=== PATIENT | female | born 1980 | race Caucasian/White ===

== ENCOUNTER 2020-08-28 13:13 | Emergency (ER) | payer BC, OTHER ==
[2020-08-28 13:16] VITALS: BP 126/89; PULSE 94
[2020-08-28] MEDS ORDERED: Sodium Chloride 0.9% 1,000 ML IV SCH (14:00)
[2020-08-28] MEDS ORDERED: Propofol 200 MG/20 ML SDV ONE (14:00)
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
--- NOTE | 2020-08-29 11:54 | CR ---
Knee 1V or 2V Lt CLINICAL HISTORY: Post reduction FINDINGS: The knee is been straightened. There is closer approximation to the inferior and superior patella. Impression: Transverse patellar fracture Fragments approximate in the extended position
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
== END 2020-08-28 17:10 | disposition home or self-care (01) ==
LOC: JP.ED 13:13
DX: S82.032A Displaced transverse fracture of left patella, initial encounter for closed fracture (principal); S63.615A Unspecified sprain of left ring finger, initial encounter; M62.838 Other muscle spasm; J44.9 Chronic obstructive pulmonary disease, unspecified; Z79.899 Other long term (current) drug therapy; Z88.0 Allergy status to penicillin; Z88.8 Allergy status to other drugs, medicaments and biological substances; Z87.891 Personal history of nicotine dependence; V48.5XXA Car driver injured in noncollision transport accident in traffic accident, initial encounter
CPT/HCPCS: 71045; 71045-26; 72125; 73140-26-F3; 73140-F3; 73560-26-LT; 73560-LT; 99285-25; J2704; J7030

== ENCOUNTER 2020-08-29 11:53 | Day surgery (SDC) | payer BC, OTHER ==
[2020-08-29] MEDS ORDERED: Nozin Nasal Sanitizer NASBOTH ONE (12:30)
[2020-08-29] MEDS ORDERED: Lactated Ringers 1,000 ML IV SCH (12:30)
[2020-08-29 12:51] LABS: CORONAVIRUS COVID-19 NAA NEGATIVE (NEGATIVE)
[2020-08-29] MEDS ORDERED: ceFAZolin 2 GM in Sodium Chloride 0.9% 50 ML IV ONE (13:00)
[2020-08-29] MEDS ORDERED: ceFAZolin 2 GM in Premix Bag 1 BAG IV ONE (13:00)
[2020-08-29] MEDS ORDERED: Dexamethasone 4 MG/ML SDV ONE (13:47)
[2020-08-29] MEDS ORDERED: Neostigmine Methylsulfate 1 MG/ML 5 ML Syringe ONE (13:47)
[2020-08-29] MEDS ORDERED: Ondansetron 4 MG/2 ML SDV ONE (13:47)
[2020-08-29] MEDS ORDERED: Rocuronium 50 MG/5 ML Vial ONE (13:47)
[2020-08-29] MEDS ORDERED: Succinylcholine 200 MG/10 ML MDV ONE (13:47)
[2020-08-29] MEDS ORDERED: fentaNYL 250 MCG/5 ML SDV ONE (13:47)
[2020-08-29] MEDS ORDERED: Glycopyrrolate 0.2 MG/ML 5 ML MDV ONE (13:47)
[2020-08-29] MEDS ORDERED: Propofol 200 MG/20 ML SDV ONE (13:47)
[2020-08-29] MEDS ORDERED: fentaNYL 100 MCG/2 ML SDV ONE (14:44)
[2020-08-29] MEDS: Bupivacaine 0.5%/EPINEPHrine 1:200,000 50 ML MDV ONE ×2 (14:59→15:30)
[2020-08-29] MEDS ORDERED: Morphine 2 MG/ML SYRINGE IVPUSH ONE (16:25)
[2020-08-29] MEDS ORDERED: Acetaminophen/oxyCODONE 325-5 MG Tab PO PRN (16:32)
[2020-08-29 17:48] VITALS: BP 112/64; PULSE 82
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
== END 2020-08-29 18:05 | disposition home or self-care (01) ==
LOC: JP.SDS 11:53
PROVIDERS: ATTEND Specialist
DX: S82.042A Displaced comminuted fracture of left patella, initial encounter for closed fracture (principal); J44.9 Chronic obstructive pulmonary disease, unspecified; F17.200 Nicotine dependence, unspecified, uncomplicated; Z91.030 Bee allergy status; Z88.8 Allergy status to other drugs, medicaments and biological substances; Z88.0 Allergy status to penicillin; Z01.812 Encounter for preprocedural laboratory examination; Z20.822 Contact with and (suspected) exposure to COVID-19; V89.2XXA Person injured in unspecified motor-vehicle accident, traffic, initial encounter
CPT/HCPCS: 0241U; 27524; 36415; 80053; 84703; 85027; A9270; J0330; J0690; J1100; J2270; J2405; J2704; J2710; J3010; J3490; J7120

== ENCOUNTER 2020-11-02 08:51 | Inpatient (IN) | payer BC ==
[2020-11-02] MEDS: Bupivacaine 0.5%/EPINEPHrine 1:200,000 50 ML MDV ONE ×2 (08:17→11:16)
[~2020-11-02 08:51] MED LIST: Lactated Ringers 1,000 ML IV SCH; Midazolam 1 MG/ML 2 ML SDV ONE; Nozin Nasal Sanitizer NASBOTH SCH; Propofol 200 MG/20 ML SDV ONE; fentaNYL 100 MCG/2 ML SDV ONE
[2020-11-02] MEDS ORDERED: Lactated Ringers 1,000 ML IV SCH (09:30)
[2020-11-02] MEDS: Nozin Nasal Sanitizer NASBOTH SCH ×2 (09:42→23:20)
[2020-11-02] MEDS ORDERED: Propofol 200 MG/20 ML SDV ONE (10:00)
[2020-11-02 10:12] LABS: CORONAVIRUS COVID-19 NAA POSITIVE (NEGATIVE)
[2020-11-02] MEDS ORDERED: ceFAZolin 2 GM in Sodium Chloride 0.9% 100 ML IV ONE (10:30)
[2020-11-02] MEDS ORDERED: ceFAZolin 2 GM in Premix Bag 1 BAG IV ONE (10:30)
[2020-11-02] MEDS ORDERED: Acetaminophen/oxyCODONE 325-5 MG Tab PO PRN ×2 (13:00→15:34)
[2020-11-02] MEDS ORDERED: Acetaminophen/HYDROcodone 325-5 MG Tab PO PRN ×2 (14:23→15:45)
[2020-11-02] MEDS ORDERED: Ketorolac 30 MG/ML SDV IVPUSH ONE (14:53)
[2020-11-02] MEDS ORDERED: Morphine 2 MG/ML SYRINGE IVPUSH ONE ×2 (15:34→19:15)
[2020-11-02] MEDS ORDERED: Acetaminophen 325 MG Tab PO PRN (15:45)
[2020-11-02] MEDS ORDERED: Ondansetron 4 MG/2 ML SDV IVPUSH PRN (15:45)
[2020-11-02] MEDS ORDERED: Sodium Chloride 0.9% 1,000 ML IV SCH (15:45)
[2020-11-02] MEDS ORDERED: ClonazePAM 1 MG Tab PO PRN (15:51)
[2020-11-02] MEDS ORDERED: Albuterol 8 GM Inhaler INH PRN (15:51)
[2020-11-02] MEDS ORDERED: LEVONORGESTREL IUD IY SCH (16:00)
[2020-11-02] MEDS: Morphine 2 MG/ML SYRINGE IVPUSH PRN (16:46)
[2020-11-02] MEDS: Acetaminophen/oxyCODONE 325-5 MG Tab PO PRN (19:54)
[2020-11-02] MEDS: hydrOXYzine HCL 100 MG/2 ML SDV IM PRN (19:56)
[2020-11-02] MEDS ORDERED: Cyclobenzaprine 10 MG Tab PO ONE (20:25)
[2020-11-02] MEDS ORDERED: Cyclobenzaprine 10 MG Tab ONE (20:26)
[2020-11-02] MEDS ORDERED: Docusate Sodium 100 MG Cap PO SCH (21:00)
[2020-11-02] MEDS ORDERED: traZODone 50 MG Tab PO SCH (21:00)
[2020-11-02] MEDS ORDERED: Non-Formulary Medication 1 Each (Trazodone [Trazodone] 100 MG Tablet) PO SCH ×2 (21:00)
[2020-11-02] MEDS ORDERED: Nozin Nasal Sanitizer NASBOTH SCH (21:00)
[2020-11-02] MEDS: Sulfamethoxazole/Trimethoprim 800-160 MG Tab PO SCH (22:35)
[2020-11-02] MEDS: Docusate Sodium 100 MG Cap PO SCH (22:35)
[2020-11-03] MEDS: Acetaminophen/oxyCODONE 325-5 MG Tab PO PRN ×3 (00:10→09:09)
[2020-11-03] MEDS: hydrOXYzine HCL 100 MG/2 ML SDV IM PRN (01:56)
[2020-11-03] MEDS: Morphine 2 MG/ML SYRINGE IVPUSH PRN ×2 (05:52→09:03)
[2020-11-03] MEDS ORDERED: HYDROmorphone 1 MG/ML Syringe IVPUSH PRN (08:53)
[2020-11-03] MEDS ORDERED: Nicotine 14 MG/24 Hr Patch TRDERM ONE (08:54)
[2020-11-03] MEDS ORDERED: DULoxetine 30 MG Cap PO SCH ×2 (09:00→14:00)
[2020-11-03] MEDS ORDERED: Enoxaparin 30 MG/0.3 ML Syringe SUBCUT SCH ×2 (09:00)
[2020-11-03] MEDS: Docusate Sodium 100 MG Cap PO SCH (09:09)
[2020-11-03] MEDS: Amphetamine/Dextroamphetamine Salts 10 MG Tab PO SCH ×2 (09:09→16:08)
[2020-11-03] MEDS: Sulfamethoxazole/Trimethoprim 800-160 MG Tab PO SCH (09:09)
--- NOTE | 2020-11-03 09:15 | PCM.SURGPN ---
- General Info Date of Service: 11/03/20 Date of Surgery/Procedure: 11/02/20 POD#: 1 Post-Op Diagnosis: left patellar tendon rupture Admission Diagnosis/Problem: Knee joint operation Functional Status: Reports: Tolerating Diet - Review of Systems HEENT: Reports: No Symptoms Pulmonary: Reports: No Symptoms Cardiovascular: Reports: No Symptoms Gastrointestinal: Reports: No Symptoms Genitourinary: Reports: No Symptoms Musculoskeletal: Reports: Leg Pain (Left ), Joint Pain (Left knee ), Joint Swelling (Left knee ) Skin: Reports: No Symptoms Neurological: Reports: No Symptoms Psychiatric: Reports: No Symptoms - Patient Data Vitals - Most Recent: Last Vital Signs Temp 98.6 F 11/03/20 09:05 Pulse 79 11/03/20 09:05 Resp 16 11/03/20 09:05 BP 92/50 L 11/03/20 09:05 Pulse Ox 93 L 11/03/20 09:05 Weight - Most Recent: 173 lb I&O - Last 24 Hours: Intake & Output 11/02/20 11/03/20 11/03/20 22:59 06:59 14:59 Intake Total 700 1548 Output Total 800 150 400 Balance -100 1398 -400 Lab Results Last 24 Hrs: Laboratory Results - last 24 hr 11/02/20 11/02/20 11/02/20 Range/Units 09:12 09:15 09:15 WBC 7.2 (4.5-11.0) K/uL RBC 4.15 (3.30-5.50) M/uL Hgb 14.4 (12.0-15.0) g/dL Hct 43.1 (36.0-48.0) % MCV 104 H (80-98) fL MCH 35 H (27-31) pg MCHC 33 (32-36) % Plt Count 325 (150-400) K/uL Sodium 146 (140-148) mmol/L Potassium 4.0 (3.6-5.2) mmol/L Chloride 109 H (100-108) mmol/L Carbon Dioxide 26 (21-32) mmol/L Anion Gap 15.0 H (5.0-14.0) mmol/L BUN 10 (7-18) mg/dL Creatinine 0.6 (0.6-1.0) mg/dL Est Cr Clr Drug Dosing 102.15 mL/min Estimated GFR (MDRD) > 60 (>60) Glucose 114 H (74-106) mg/dL Calcium 8.2 L (8.5-10.1) mg/dL Total Bilirubin 0.2 D (0.2-1.0) mg/dL AST 20 (15-37) U/L ALT 24 (12-78) U/L Alkaline Phosphatase 102 (46-116) U/L Total Protein 6.3 L (6.4-8.2) g/dL Albumin 3.1 L (3.4-5.0) g/dL Globulin 3.2 (2.3-3.5) g/dL Albumin/Globulin Ratio 1.0 L (1.2-2.2) Urine HCG, Qual Negative Influenza Type A RNA (NEGATIVE) RSV RNA (INAAT) (NEGATIVE) Influenza Type B RNA (NEGATIVE) SARS-CoV-2 RNA (REAGAN) (NEGATIVE) 11/02/20 11/03/20 Range/Units 09:17 05:40 WBC 9.9 (4.5-11.0) K/uL RBC 3.93 (3.30-5.50) M/uL Hgb 13.9 (12.0-15.0) g/dL Hct 41.0 (36.0-48.0) % MCV 104 H (80-98) fL MCH 35 H (27-31) pg MCHC 34 (32-36) % Plt Count 260 (150-400) K/uL Sodium (140-148) mmol/L Potassium (3.6-5.2) mmol/L Chloride (100-108) mmol/L Carbon Dioxide (21-32) mmol/L Anion Gap (5.0-14.0) mmol/L BUN (7-18) mg/dL Creatinine (0.6-1.0) mg/dL Est Cr Clr Drug Dosing mL/min Estimated GFR (MDRD) (>60) Glucose (74-106) mg/dL Calcium (8.5-10.1) mg/dL Total Bilirubin (0.2-1.0) mg/dL AST (15-37) U/L ALT (12-78) U/L Alkaline Phosphatase (46-116) U/L Total Protein (6.4-8.2) g/dL Albumin (3.4-5.0) g/dL Globulin (2.3-3.5) g/dL Albumin/Globulin Ratio (1.2-2.2) Urine HCG, Qual Influenza Type A RNA Negative (NEGATIVE) RSV RNA (INAAT) Negative (NEGATIVE) Influenza Type B RNA Negative (NEGATIVE) SARS-CoV-2 RNA (REAGAN) Positive H (NEGATIVE) Med Orders - Current: Current Medications Acetaminophen (Acetaminophen 325 Mg Tab) 650 mg PO Q4H PRN PRN Reason: Pain/Fever Hydrocodone Bitart/Acetaminophen (Acetaminophen/Hydrocodone 325-5 Mg Tab) 1 tab PO Q4H PRN PRN Reason: Pain (mild 1-3) Albuterol (Albuterol 8 Gm Inhaler) 0 gm INH ASDIRECTED PRN PRN Reason: Shortness of Breath Amphetamine/Dextroamphetamine (Amphetamine/Dextroamphetamine Salts 10 Mg Tab) 10 mg PO BID@0800,1500 [facility] Last Admin: 11/03/20 09:09 Dose: 10 mg Documented by: Bandage/Support Products (Nozin Nasal Retail Store Manager) 1 applic NASBOTH BID [facility] Last Admin: 11/02/20 23:20 Dose: Not Given Documented by: Clonazepam (Clonazepam 1 Mg Tab) 1 mg PO BID PRN PRN Reason: Anxiety Last Admin: 11/02/20 16:14 Dose: 1 mg Documented by: Docusate Sodium (Docusate Sodium 100 Mg Cap) 100 mg PO BID [facility] Last Admin: 11/03/20 09:09 Dose: 100 mg Documented by: Duloxetine HCl (Duloxetine 30 Mg Cap) 30 mg PO DAILY [facility] Enoxaparin Sodium (Enoxaparin 30 Mg/0.3 Ml Syringe) 30 mg SUBCUT DAILY [facility] Last Admin: 11/03/20 09:09 Dose: 30 mg Documented by: Hydromorphone HCl (Hydromorphone 1 Mg/Ml Syringe) 1 mg IVPUSH Q4H PRN PRN Reason: Breakthrough Pain Hydroxyzine HCl (Hydroxyzine Hcl 100 Mg/2 Ml Sdv) 100 mg IM Q6H PRN PRN Reason: Pain Last Admin: 11/03/20 01:56 Dose: 100 mg Documented by: Sodium Chloride (Normal Saline) 1,000 mls @ 125 mls/hr IV ASDIRECTED [facility] Last Admin: 11/02/20 16:14 Dose: 125 mls/hr Documented by: Morphine Sulfate (Morphine 2 Mg/Ml Syringe) 1 mg IVPUSH Q1H PRN PRN Reason: Breakthrough Pain Last Admin: 11/03/20 09:03 Dose: 1 mg Documented by: Ondansetron HCl (Ondansetron 4 Mg/2 Ml Sdv) 4 mg IVPUSH Q4H PRN PRN Reason: Nausea/Vomiting Oxycodone/Acetaminophen (Acetaminophen/Oxycodone 325-5 Mg Tab) 1 - 2 tab PO Q4H PRN PRN Reason: Pain Last Admin: 11/03/20 09:09 Dose: 2 tab Documented by: Trazodone HCl (Trazodone 50 Mg Tab) 50 mg PO BEDTIME [facility] Last Admin: 11/02/20 22:36 Dose: 50 mg Documented by: Trimethoprim/Sulfamethoxazole (Sulfamethoxazole/Trimethoprim 800-160 Mg Tab) 1 tab PO BID [facility] Last Admin: 11/03/20 09:09 Dose: 1 tab Documented by: Discontinued Medications Hydrocodone Bitart/Acetaminophen (Acetaminophen/Hydrocodone 325-5 Mg Tab) 2 tab PO Q6H PRN PRN Reason: Pain Stop: 11/02/20 19:00 Last Admin: 11/02/20 14:32 Dose: 2 tab Documented by: Bupivacaine HCl/Epinephrine Bitart (Bupivacaine 0.5%/Epinephrine 1:200,000 50 Ml Mdv) Confirm Administered Dose 50 ml .ROUTE .STK-MED ONE Stop: 11/02/20 07:23 Last Admin: 11/02/20 11:16 Dose: 30 ml Documented by: Cyclobenzaprine HCl (Cyclobenzaprine 10 Mg Tab) 10 mg PO ONETIME ONE Stop: 11/02/20 20:26 Last Admin: 11/02/20 20:30 Dose: 10 mg Documented by: Cyclobenzaprine HCl (Cyclobenzaprine 10 Mg Tab) Confirm Administered Dose 10 mg .ROUTE .STK-MED ONE Stop: 11/02/20 20:27 Last Admin: 11/02/20 21:38 Dose: Not Given Documented by: Docusate Sodium (Docusate Sodium 100 Mg Cap) 100 mg PO BID [facility] Duloxetine HCl (Duloxetine 30 Mg Cap) 30 mg PO DAILY [facility] Enoxaparin Sodium (Enoxaparin 30 Mg/0.3 Ml Syringe) 30 mg SUBCUT DAILY [facility] Fentanyl (Fentanyl 100 Mcg/2 Ml Sdv) Confirm Administered Dose 100 mcg .ROUTE .STK-MED ONE Stop: 11/02/20 08:31 Lactated Ringer's (Ringers, Lactated) 1,000 mls @ 75 mls/hr IV ASDIRECTED [facility] Lactated Ringer's (Ringers, Lactated) 1,000 mls @ 75 mls/hr IV ASDIRECTED [facility] Last Admin: 11/02/20 09:51 Dose: 75 mls/hr Documented by: Cefazolin Sodium/Dextrose 2 gm (/ Premix) 50 mls @ 100 mls/hr IV ONETIME ONE Stop: 11/02/20 10:59 Last Admin: 11/02/20 10:38 Dose: 100 mls/hr Documented by: Ketorolac Tromethamine (Ketorolac 30 Mg/Ml Sdv) 30 mg IVPUSH ONETIME ONE Stop: 11/02/20 14:54 Last Admin: 11/02/20 15:12 Dose: 30 mg Documented by: Midazolam HCl (Midazolam 1 Mg/Ml 2 Ml Sdv) Confirm Administered Dose 2 mg .ROUTE .STK-MED ONE Stop: 11/02/20 08:31 Morphine Sulfate (Morphine 2 Mg/Ml Syringe) 2 mg IVPUSH ONETIME ONE Stop: 11/02/20 15:35 Last Admin: 11/02/20 15:42 Dose: 2 mg Documented by: Morphine Sulfate (Morphine 2 Mg/Ml Syringe) 2 mg IVPUSH ONETIME ONE Stop: 11/02/20 19:16 Last Admin: 11/02/20 19:55 Dose: 2 mg Documented by: Nicotine (Nicotine 14 Mg/24 Hr Patch) 14 mg TRDERM ONETIME ONE Stop: 11/03/20 08:55 Non-Formulary Medication (Trazodone [Trazodone]) 50 mg PO BEDTIME [facility] Oxycodone/Acetaminophen (Acetaminophen/Oxycodone 325-5 Mg Tab) 1 tab PO ONETIME PRN PRN Reason: Pain Last Admin: 11/02/20 15:46 Dose: 1 tab Documented by: Propofol (Propofol 200 Mg/20 Ml Sdv) Confirm Administered Dose 200 mg .ROUTE .STK-MED ONE Stop: 11/02/20 08:31 Propofol (Propofol 200 Mg/20 Ml Sdv) 200 mg .ROUTE .STK-MED ONE Stop: 11/02/20 10:01 - Exam Wound/Incisions: Dressing Dry and Intact, No Drainage General: Alert, Oriented, Moderate Distress Extremities: Joint Swelling (left knee ), Leg Pain (left ), Limited Range of Motion Skin: Dry, Intact Neurological: No New Focal Deficit Psy/Mental Status: Alert, Anxious Sepsis Event Note - Evaluation Sepsis Screening Result: No Definite Risk - Focused Exam Vital Signs: Vital Signs Temp Pulse Resp BP Pulse Ox 11/03/20 09:05 98.6 F 79 16 92/50 L 93 L 11/03/20 07:23 91 L 11/03/20 02:10 96.8 F L 72 16 140/85 94 L 11/03/20 00:46 91 L 11/02/20 22:33 95.6 F L 68 18 123/85 94 L 11/02/20 21:58 95 - Problem List & Annotations (1) S/P tendon repair SNOMED Code(s): 136828454, 730280273 Code(s): Z98.890 - OTHER SPECIFIED POSTPROCEDURAL STATES Status: Acute Current Visit: Yes Annotation/Comment:: Patella Tendon (2) COVID-19 SNOMED Code(s): 938551991 Code(s): U07.1 - COVID-19 Status: Acute Current Visit: Yes - Problem List Review Problem List Initiated/Reviewed/Updated: Yes - My Orders Last 24 Hours: Active Orders 24 hr Category Date Time Status Patient Status [ADT] Routine ADT 11/02/20 15:46 Active Ambulate [RC] QID Care 11/02/20 15:46 Active Antiembolic Devices [RC] .Routine Care 11/02/20 15:46 Active Head of Bed Elevation [RC] ASDIRECTED Care 11/02/20 15:46 Active Intake and Output [RC] QSHIFT Care 11/02/20 15:46 Active May Shower [RC] ASDIRECTED Care 11/02/20 15:46 Active Neurovascular Check [RC] Q4H Care 11/02/20 15:46 Active Notify Provider Vital Signs [RC] ASDIRECTED Care 11/02/20 15:45 Active Overnight Pulse Oximetry [RC] Click to Edit Care 11/02/20 21:02 Active Oxygen Therapy [RC] PRN Care 11/02/20 15:46 Active RT Incentive Spirometry [RC] Q1HWA Care 11/02/20 15:46 Active RT Post Treatment Assessment [RC] Click to Edit Care 11/02/20 15:52 Active Up to Chair [RC] QID Care 11/02/20 15:46 Active VTE/DVT Education [RC] Click to Edit Care 11/02/20 15:46 Active Vital Signs [RC] PER UNIT ROUTINE Care 11/02/20 15:46 Active Wound Care [RC] Q12H Care 11/02/20 15:46 Active Consult to Case Management/Clinical Informatics Physician [CONS] Cons 11/02/20 15:46 Active Routine PT Evaluation and Treatment [CONS] Routine Cons 11/02/20 15:46 Active Regular Diet [DIET] Diet 11/02/20 Lunch Active Acetaminophen [TylenoL] Med 11/02/20 15:45 Active 650 mg PO Q4H PRN Acetaminophen/HYDROcodone [[place]ia 325-5 MG] Med 11/02/20 15:45 Active 1 tab PO Q4H PRN Acetaminophen/oxyCODONE [Percocet 325-5 MG] Med 11/02/20 15:45 Active 1 - 2 tab PO Q4H PRN Albuterol [Ventolin HFA] Med 11/02/20 15:51 Active 0 gm INH ASDIRECTED PRN Amphetamine/Dextroamphetamine [Adderall] Med 11/03/20 08:00 Active 10 mg PO BID@0800,1500 ClonazePAM [KlonoPIN] Med 11/02/20 15:51 Active 1 mg PO BID PRN DULoxetine [Cymbalta] Med 11/03/20 09:00 Pending 30 mg PO DAILY Docusate Sodium [Colace] Med 11/02/20 21:00 Active 100 mg PO BID Enoxaparin [Lovenox] Med 11/03/20 09:00 Active 30 mg SUBCUT DAILY HYDROmorphone [Dilaudid] Med 11/03/20 08:53 Active 1 mg IVPUSH Q4H PRN Morphine Med 11/02/20 15:45 Active 1 mg IVPUSH Q1H PRN Nozin [ Nasal Retail Store Manager] Med 11/02/20 09:30 Active 1 applic NASBOTH BID Ondansetron [Zofran] Med 11/02/20 15:45 Active 4 mg IVPUSH Q4H PRN Sodium Chloride 0.9% [Normal Saline] 1,000 ml Med 11/02/20 15:45 Active IV ASDIRECTED Sulfamethoxazole/Trimethoprim [Septra DS] Med 11/02/20 21:00 Active 1 tab PO BID hydrOXYzine HCL [Vistaril] Med 11/02/20 19:14 Active 100 mg IM Q6H PRN traZODone Med 11/02/20 21:00 Active 50 mg PO BEDTIME Antiembolic Hose [OM.PC] Routine Oth 11/02/20 15:46 Ordered DVT/VTE Prophylaxis Reflex [OM.PC] Routine Oth 11/02/20 15:46 Ordered Ice Therapy [OM.PC] Per Unit Routine Oth 11/02/20 15:46 Ordered Medication Continuation Instructions [OM.PC] Per Unit Oth 11/02/20 15:46 Ordered Routine Oral Care [OM.PC] Routine Oth 11/02/20 15:46 Ordered Pulse Oximetry Continuous Monitoring [OM.PC] Routine Oth 11/02/20 21:02 Ordered Sequential Compression Device [OM.PC] Routine Oth 11/02/20 15:46 Ordered Weight bearing status [OM.PC] Routine Oth 11/02/20 15:53 Ordered Resuscitation Status Routine Resus Stat 11/02/20 15:45 Ordered Medication Orders Acetaminophen (Acetaminophen 325 Mg Tab) 650 mg PO Q4H PRN PRN Reason: Pain/Fever Hydrocodone Bitart/Acetaminophen (Acetaminophen/Hydrocodone 325-5 Mg Tab) 1 tab PO Q4H PRN PRN Reason: Pain (mild 1-3) Albuterol (Albuterol 8 Gm Inhaler) 0 gm INH ASDIRECTED PRN PRN Reason: Shortness of Breath Amphetamine/Dextroamphetamine (Amphetamine/Dextroamphetamine Salts 10 Mg Tab) 10 mg PO BID@0800,1500 [facility] Last Admin: 11/03/20 09:09 Dose: 10 mg Documented by: CLAUS Bandage/Support Products (Nozin Nasal Retail Store Manager) 1 applic NASBOTH BID [facility] Last Admin: 11/02/20 23:20 Dose: Not Given Documented by: Admin: 11/02/20 09:42 Dose: 1 applic Documented by: URIEL Clonazepam (Clonazepam 1 Mg Tab) 1 mg PO BID PRN PRN Reason: Anxiety Last Admin: 11/02/20 16:14 Dose: 1 mg Documented by: PARTH Docusate Sodium (Docusate Sodium 100 Mg Cap) 100 mg PO BID [facility] Last Admin: 11/03/20 09:09 Dose: 100 mg Documented by: Admin: 11/02/20 22:35 Dose: 100 mg Documented by: DEMAR Duloxetine HCl (Duloxetine 30 Mg Cap) 30 mg PO DAILY [facility] Enoxaparin Sodium (Enoxaparin 30 Mg/0.3 Ml Syringe) 30 mg SUBCUT DAILY [facility] Last Admin: 11/03/20 09:09 Dose: 30 mg Documented by: CLAUS Hydromorphone HCl (Hydromorphone 1 Mg/Ml Syringe) 1 mg IVPUSH Q4H PRN PRN Reason: Breakthrough Pain Hydroxyzine HCl (Hydroxyzine Hcl 100 Mg/2 Ml Sdv) 100 mg IM Q6H PRN PRN Reason: Pain Last Admin: 11/03/20 01:56 Dose: 100 mg Documented by: Admin: 11/02/20 19:56 Dose: 100 mg Documented by: DEMAR Sodium Chloride (Normal Saline) 1,000 mls @ 125 mls/hr IV ASDIRECTED [facility] Last Admin: 11/02/20 16:14 Dose: 125 mls/hr Documented by: PARTH Morphine Sulfate (Morphine 2 Mg/Ml Syringe) 1 mg IVPUSH Q1H PRN PRN Reason: Breakthrough Pain Last Admin: 11/03/20 09:03 Dose: 1 mg Documented by: Admin: 11/03/20 05:52 Dose: 1 mg Documented by: Admin: 11/02/20 16:46 Dose: 1 mg Documented by: JOSEMANUEL Ondansetron HCl (Ondansetron 4 Mg/2 Ml Sdv) 4 mg IVPUSH Q4H PRN PRN Reason: Nausea/Vomiting Oxycodone/Acetaminophen (Acetaminophen/Oxycodone 325-5 Mg Tab) 1 - 2 tab PO Q4H PRN PRN Reason: Pain Last Admin: 11/03/20 09:09 Dose: 2 tab Documented by: Admin: 11/03/20 05:04 Dose: 2 tab Documented by: Admin: 11/03/20 00:10 Dose: 2 tab Documented by: Admin: 11/02/20 19:54 Dose: 2 tab Documented by: DEMAR Trazodone HCl (Trazodone 50 Mg Tab) 50 mg PO BEDTIME [facility] Last Admin: 11/02/20 22:36 Dose: 50 mg Documented by: DEMAR Trimethoprim/Sulfamethoxazole (Sulfamethoxazole/Trimethoprim 800-160 Mg Tab) 1 tab PO BID [facility] Last Admin: 11/03/20 09:09 Dose: 1 tab Documented by: Admin: 11/02/20 22:35 Dose: 1 tab Documented by: DEMAR - Assessment Assessment (Free Text/Narrative):: Patient is a 40 y/o female, s/p left patellar tendon rupture repair, POD #1. Was set to be a same day surgery, but was admitted for inadequate pain control. Patient also tested positive for covid the morning of surgery. Patient is asymptomatic and was unaware she had covid. Denied any recent sick contacts. Patient had difficulty with pain control the afternoon following surgery and all day. Only slept in 30-40 minute increments last night due to pain. Patient was given Percocet, Morphine, Hydroxyzine, and Flexeril overnight, but continues to endorse pain. Order added for Dilaudid this morning. Additionally, ordered patient a nicotine patch. Exam: L LE neurovascular intact. Calf is soft and supple. Able to passively move ankle without increased pain. Left knee dressing dry and intact. Unable to assess temperature with recent cold packs. Plan: * Adjustments made to pain regimen this morning; will continue with current orders at this time * Patient to continue physical therapy while inpatient; may WBAT with brace locked in full extension.
[2020-11-03] MEDS: Nozin Nasal Sanitizer NASBOTH SCH (12:06)
[2020-11-03] MEDS ORDERED: HYDROmorphone 2 MG Tab PO PRN (14:00)
[2020-11-03 16:11] VITALS: BP 127/88; PULSE 77
--- NOTE | 2020-11-03 17:01 | PCM.DCSUM1 ---
Discharge Summary - Hospital Course Free Text/Narrative:: 40 year old white female with history of fracture of the inferior pole of the patella treated by repair of infrapatellar tendon. Repair failed and she was returned to the OR for revision of repair. She had poor pain control and was admitted for IV medication. Diagnosis: Stroke: No Modified White Scale: No Symptoms at All Modified Zeb Scale Score: 0 - Discharge Data Discharge Date: 11/03/20 Discharge Disposition: Home, Self-Care 01 Condition: Good - Referral to Home Health Date of Face to Face Encounter: 11/03/20 Primary Care Physician: Catie Sher PA-C - Discharge Diagnosis/Problem(s) (1) S/P tendon repair SNOMED Code(s): 960420031, [id number] ICD Code: Z98.890 - OTHER SPECIFIED POSTPROCEDURAL STATES Status: Acute Current Visit: Yes Problem Details: Patella Tendon (2) Fracture of patella SNOMED Code(s): 94200912 ICD Code: S82.009A - UNSP FRACTURE OF UNSP PATELLA, INIT FOR CLOS FX Status: Acute Current Visit: No Qualifiers: Encounter type: subsequent encounter Fracture type: closed Fracture morphology: comminuted Laterality: left - Patient Summary/Data Operative Procedure(s) Performed: Repair of infrapatellar tendon Consults: Consultations 11/02/20 15:46 Consult to Case Management/Heater Worker [CONS] Routine Comment: Physician Instructions: Service(s) to be Consulted: Case Management Reason for Consult: Plan for Discharge PT Evaluation and Treatment [CONS] Routine Please Evaluate and Treat. PT Reason for Consult: Post op Ortho Surgery Special Instructions: s/p L patella tendon repair WBAT on LLE with brace locked in full extension This query below is only for informational purposes and is not editable. Hospital Course: Patient admitted from surgery for pain control. Initially had minimal relief with oral of IV medication. Was finally able to get some relief with a combination of IV and Oral meds. POD #1 was still having fairly severe pain and tried Dilaudid with good effect. Was transitioned to po Dilaudid and she was comfortable enough to be discharged. Follow up in clinic in two weeks. She may remove dressing and shower on POD #2. She should have the knee brace on any time she is up and should no weight bear without the brace. - Patient Instructions Diet: Usual Diet as Tolerated Activity: Apply Ice, Elevate Extremity Activity, Other: May weight bear as tolaerated with brace on, no knee flexion Showering/Bathing: Shower in AM Wound/Incision Care: Keep Operative Site/Wound Site Clean and Dry Notify Provider of: Fever, Increased Pain, Swelling and Redness, Drainage, Nausea and/or Vomiting - Discharge Plan *PRESCRIPTION DRUG MONITORING PROGRAM REVIEWED*: No *COPY OF PRESCRIPTION DRUG MONITORING REPORT IN PATIENT CARLA: No Prescriptions/Med Rec: Sulfamethoxazole/Trimethoprim [Bactrim Ds Tablet] 1 each PO BID #14 tablet HYDROmorphone [Dilaudid] 2 mg PO Q4H PRN #30 tab PRN Reason: Pain (Severe 7-10) Acetaminophen/HYDROcodone [[place] 325-5 MG] 1 - 2 tab PO Q6H PRN #30 tab PRN Reason: Pain Home Medications: Home Meds Albuterol Sulfate [Albuterol Sulfate Hfa] 1 - 2 puff IH ASDIRECTED PRN 05/04/20 [History] Celecoxib [CeleBREX] 100 mg PO BID PRN 05/04/20 [History] traZODone 50 mg PO BEDTIME 05/04/20 [History] DULoxetine [Cymbalta] 30 mg PO DAILY 08/28/20 [History] clonazePAM [Clonazepam] 1 mg PO BID PRN 08/28/20 [History] levonorgestreL [Kyleena] 1 each IY ASDIRECTED 08/29/20 [History] oxyCODONE 5 mg PO Q6H PRN 08/29/20 [History] cephALEXin [Keflex] 500 mg PO TID 7 Days #21 cap 10/19/20 [Rx] Dextroamphetamine/Amphetamine [Adderall 10 mg Tablet] 10 mg PO BID 10/28/20 [History] Acetaminophen/HYDROcodone [[place] 325-5 MG] 1 - 2 tab PO Q6H PRN #30 tab 11/02/20 [Rx] Sulfamethoxazole/Trimethoprim [Bactrim Ds Tablet] 1 each PO BID #14 tablet 11/02/20 [Rx] HYDROmorphone [Dilaudid] 2 mg PO Q4H PRN #30 tab 11/03/20 [Rx] - Discharge Summary/Plan Comment DC Time >30 min.: No - General Info Date of Service: 11/03/20 Functional Status: Reports: Pain Controlled, Tolerating Diet, Ambulating, Urinating - Review of Systems General: Reports: No Symptoms HEENT: Reports: No Symptoms Pulmonary: Reports: No Symptoms Cardiovascular: Reports: No Symptoms Gastrointestinal: Reports: No Symptoms Genitourinary: Reports: No Symptoms Musculoskeletal: Reports: Leg Pain Skin: Reports: No Symptoms Neurological: Reports: No Symptoms Psychiatric: Reports: No Symptoms - Patient Data Vitals - Most Recent: Last Vital Signs Temp 35.5 C L 11/03/20 16:10 Pulse 77 11/03/20 16:10 Resp 16 11/03/20 16:10 BP 127/88 11/03/20 16:10 Pulse Ox 97 11/03/20 16:10 Weight - Most Recent: 78.471 kg I&O - Last 24 hours: Intake & Output 11/03/20 11/03/20 11/03/20 06:59 14:59 22:59 Intake Total 1548 500 800 Output Total 150 800 900 Balance 1398 -300 -100 Lab Results - Last 24 hrs: Laboratory Results - last 24 hr 11/03/20 Range/Units 05:40 WBC 9.9 (4.5-11.0) K/uL RBC 3.93 (3.30-5.50) M/uL Hgb 13.9 (12.0-15.0) g/dL Hct 41.0 (36.0-48.0) % MCV 104 H (80-98) fL MCH 35 H (27-31) pg MCHC 34 (32-36) % Plt Count 260 (150-400) K/uL Med Orders - Current: Current Medications Acetaminophen (Acetaminophen 325 Mg Tab) 650 mg PO Q4H PRN PRN Reason: Pain/Fever Hydrocodone Bitart/Acetaminophen (Acetaminophen/Hydrocodone 325-5 Mg Tab) 1 tab PO Q4H PRN PRN Reason: Pain (mild 1-3) Albuterol (Albuterol 8 Gm Inhaler) 0 gm INH ASDIRECTED PRN PRN Reason: Shortness of Breath Amphetamine/Dextroamphetamine (Amphetamine/Dextroamphetamine Salts 10 Mg Tab) 10 mg PO BID@0800,1500 [facility] Last Admin: 11/03/20 16:08 Dose: 10 mg Documented by: Bandage/Support Products (Nozin Nasal [employer] Engineer) 1 applic NASBOTH BID [facility] Last Admin: 11/03/20 12:06 Dose: Not Given Documented by: Clonazepam (Clonazepam 1 Mg Tab) 1 mg PO BID PRN PRN Reason: Anxiety Last Admin: 11/02/20 16:14 Dose: 1 mg Documented by: Docusate Sodium (Docusate Sodium 100 Mg Cap) 100 mg PO BID [facility] Last Admin: 11/03/20 09:09 Dose: 100 mg Documented by: Duloxetine HCl (Duloxetine 30 Mg Cap) 60 mg PO DAILY [facility] Last Admin: 11/03/20 14:11 Dose: Not Given Documented by: Enoxaparin Sodium (Enoxaparin 30 Mg/0.3 Ml Syringe) 30 mg SUBCUT DAILY [facility] Last Admin: 11/03/20 09:09 Dose: 30 mg Documented by: Hydromorphone HCl (Hydromorphone 2 Mg Tab) 2 mg PO Q4H PRN PRN Reason: Breakthrough Pain Last Admin: 11/03/20 16:08 Dose: 2 mg Documented by: Hydroxyzine HCl (Hydroxyzine Hcl 100 Mg/2 Ml Sdv) 100 mg IM Q6H PRN PRN Reason: Pain Last Admin: 11/03/20 01:56 Dose: 100 mg Documented by: Sodium Chloride (Normal Saline) 1,000 mls @ 125 mls/hr IV ASDIRECTED [facility] Last Admin: 11/02/20 16:14 Dose: 125 mls/hr Documented by: Morphine Sulfate (Morphine 2 Mg/Ml Syringe) 1 mg IVPUSH Q1H PRN PRN Reason: Breakthrough Pain Last Admin: 11/03/20 09:03 Dose: 1 mg Documented by: Ondansetron HCl (Ondansetron 4 Mg/2 Ml Sdv) 4 mg IVPUSH Q4H PRN PRN Reason: Nausea/Vomiting Oxycodone/Acetaminophen (Acetaminophen/Oxycodone 325-5 Mg Tab) 1 - 2 tab PO Q4H PRN PRN Reason: Pain Last Admin: 11/03/20 09:09 Dose: 2 tab Documented by: Trazodone HCl (Trazodone 50 Mg Tab) 50 mg PO BEDTIME [facility] Last Admin: 11/02/20 22:36 Dose: 50 mg Documented by: Trimethoprim/Sulfamethoxazole (Sulfamethoxazole/Trimethoprim 800-160 Mg Tab) 1 tab PO BID [facility] Last Admin: 11/03/20 09:09 Dose: 1 tab Documented by: Discontinued Medications Hydrocodone Bitart/Acetaminophen (Acetaminophen/Hydrocodone 325-5 Mg Tab) 2 tab PO Q6H PRN PRN Reason: Pain Stop: 11/02/20 19:00 Last Admin: 11/02/20 14:32 Dose: 2 tab Documented by: Bupivacaine HCl/Epinephrine Bitart (Bupivacaine 0.5%/Epinephrine 1:200,000 50 Ml Mdv) Confirm Administered Dose 50 ml .ROUTE .STK-MED ONE Stop: 11/02/20 07:23 Last Admin: 11/02/20 11:16 Dose: 30 ml Documented by: Cyclobenzaprine HCl (Cyclobenzaprine 10 Mg Tab) 10 mg PO ONETIME ONE Stop: 11/02/20 20:26 Last Admin: 11/02/20 20:30 Dose: 10 mg Documented by: Cyclobenzaprine HCl (Cyclobenzaprine 10 Mg Tab) Confirm Administered Dose 10 mg .ROUTE .STK-MED ONE Stop: 11/02/20 20:27 Last Admin: 11/02/20 21:38 Dose: Not Given Documented by: Docusate Sodium (Docusate Sodium 100 Mg Cap) 100 mg PO BID [facility] Duloxetine HCl (Duloxetine 30 Mg Cap) 30 mg PO DAILY [facility] Enoxaparin Sodium (Enoxaparin 30 Mg/0.3 Ml Syringe) 30 mg SUBCUT DAILY [facility] Fentanyl (Fentanyl 100 Mcg/2 Ml Sdv) Confirm Administered Dose 100 mcg .ROUTE .STK-MED ONE Stop: 11/02/20 08:31 Hydromorphone HCl (Hydromorphone 1 Mg/Ml Syringe) 1 mg IVPUSH Q4H PRN PRN Reason: Breakthrough Pain Last Admin: 11/03/20 12:04 Dose: 1 mg Documented by: Lactated Ringer's (Ringers, Lactated) 1,000 mls @ 75 mls/hr IV ASDIRECTED [facility] Lactated Ringer's (Ringers, Lactated) 1,000 mls @ 75 mls/hr IV ASDIRECTED [facility] Last Admin: 11/02/20 09:51 Dose: 75 mls/hr Documented by: Cefazolin Sodium/Dextrose 2 gm (/ Premix) 50 mls @ 100 mls/hr IV ONETIME ONE Stop: 11/02/20 10:59 Last Admin: 11/02/20 10:38 Dose: 100 mls/hr Documented by: Ketorolac Tromethamine (Ketorolac 30 Mg/Ml Sdv) 30 mg IVPUSH ONETIME ONE Stop: 11/02/20 14:54 Last Admin: 11/02/20 15:12 Dose: 30 mg Documented by: Midazolam HCl (Midazolam 1 Mg/Ml 2 Ml Sdv) Confirm Administered Dose 2 mg .ROUTE .STK-MED ONE Stop: 11/02/20 08:31 Morphine Sulfate (Morphine 2 Mg/Ml Syringe) 2 mg IVPUSH ONETIME ONE Stop: 11/02/20 15:35 Last Admin: 11/02/20 15:42 Dose: 2 mg Documented by: Morphine Sulfate (Morphine 2 Mg/Ml Syringe) 2 mg IVPUSH ONETIME ONE Stop: 11/02/20 19:16 Last Admin: 11/02/20 19:55 Dose: 2 mg Documented by: Nicotine (Nicotine 14 Mg/24 Hr Patch) 14 mg TRDERM ONETIME ONE Stop: 11/03/20 08:55 Last Admin: 11/03/20 10:30 Dose: Not Given Documented by: Non-Formulary Medication (Trazodone [Trazodone]) 50 mg PO BEDTIME [facility] Oxycodone/Acetaminophen (Acetaminophen/Oxycodone 325-5 Mg Tab) 1 tab PO ONETIME PRN PRN Reason: Pain Last Admin: 11/02/20 15:46 Dose: 1 tab Documented by: Propofol (Propofol 200 Mg/20 Ml Sdv) Confirm Administered Dose 200 mg .ROUTE .STK-MED ONE Stop: 11/02/20 08:31 Propofol (Propofol 200 Mg/20 Ml Sdv) 200 mg .ROUTE .STK-MED ONE Stop: 11/02/20 10:01 - Exam General: Reports: Alert, Oriented HEENT: Reports: Pupils Equal, Pupils Reactive, EOMI Neck: Reports: Supple Cardiovascular: Reports: Regular Rate, Regular Rhythm Extremities: Joint Swelling, Limited Range of Motion Skin: Reports: Warm, Dry Wound/Incisions: Reports: No Drainage Neurological: Reports: No New Focal Deficit Psy/Mental Status: Reports: Alert, Normal Affect, Normal Mood
--- NOTE | 2020-11-14 19:55 | OR ---
DATE OF PROCEDURE: 11/02/2020 SURGEON: Lucas Lyons MD PREOPERATIVE DIAGNOSES: Failed fixation of left infrapatellar tendon secondary to inferior pole fracture. POSTOPERATIVE DIAGNOSIS: Failed repair of infrapatellar tendon, left knee. PROCEDURE: Revision repair of infrapatellar tendon, left knee. PLUMBING MECHANIC: KASANDRA Esparza ANESTHESIA: General. INDICATIONS: Merari is a 40-year-old female who sustained an injury resulting in a comminuted fracture of the inferior pole of the patella. This was treated by suture fixation of the infrapatellar tendon. This now demonstrates failure of this repair with a persistent gap and inability to actively extend the knee. Therefore, return to the operating room for revision of the fixation. Services of physician players assistant were used as kindergarten assistant for exposure, retraction, and manipulation of the fracture fragments. DESCRIPTION OF PROCEDURE: After adequate anesthesia was obtained, the patient was placed supine with a tourniquet about the left upper thigh. The left leg was prepped and draped in a sterile fashion. The leg was exsanguinated and tourniquet inflated to 300 mmHg pressure. The previous incision was utilized, carried down through the subcutaneous tissues, and the failure of fixation was immediately identified with rupture of multiple sutures. The sutures were removed from the patella. The knee was irrigated. The end of the patella was debrided. Hematoma was removed and any overlying soft tissue was cleared with curette and a rongeur getting back to fresh bone. Any small bony fragments on the superior end of the infrapatellar tendon were debrided in a similar fashion. Two FiberWire sutures were placed in the infrapatellar tendon in a [place] fashion. Three drill holes were then placed from inferior to superior in the patella. The central drill hole was used to place one of each of the pairs of sutures from the tendon. Each remaining pair was then passed through the medial and lateral drill holes respectively. The knee was placed in full extension. Towel clamps utilized to approximate the small bony fragment and edge of the tendon to the inferior pole of the patella with some compression. The sutures were then tied over top of the patella and one strand of each of the suture pairs were then tied to each other and the sutures were cut. Additional fixation was obtained with another FiberWire suture placed in a running fashion from the capsule medially across the patella incorporating the periosteum over the patella and the tendon to the lateral capsule. This was oversewn once again placing a suture in a figure- of-eight tension band fashion through the infrapatellar tendon up across the repair site and into the insertion of the quadriceps tendon slightly medial of midline. This was repeated slightly lateral of midline. Once this was complete, the knee was flexed to approximately 45 degrees with no separation at the repair site. The wound was irrigated and skin was closed with 2-0 Vicryl and a running 3-0 Monocryl. Steri-Strips were applied. Light compressive dressing was placed. A hinged knee brace was applied and locked in full extension. Lucas Lyons MD /[id number] MTDD
== END 2020-11-03 17:25 | disposition home or self-care (01) | DRG 317 ==
LOC: JP.SDSSCHI 08:51 → JP.SDS 08:51 → EDSTATUS 10:30 → JP.MS 15:46
PROVIDERS: ADMIT Specialist; ATTEND Specialist
PROC: 0LQR0ZZ Repair Left Knee Tendon, Open Approach (ICD-10-PCS; principal; 2020-11-02)
DX: T84.490A Other mechanical complication of muscle and tendon graft, initial encounter (principal); M66.262 Spontaneous rupture of extensor tendons, left lower leg; U07.1 COVID-19; S82.002D Unspecified fracture of left patella, subsequent encounter for closed fracture with routine healing; F32.9 Major depressive disorder, single episode, unspecified; J44.9 Chronic obstructive pulmonary disease, unspecified; Z88.0 Allergy status to penicillin; Z91.030 Bee allergy status
CPT/HCPCS: 0241U; 36415; 80053; 81025; 85027; 94762; 97161-GP; 97530-GP; 97535-GP; A9270-GY; J0690; J1170; J1650; J1885; J2250; J2270; J2704; J3010; J3410; J3490; J7030; J7120

== ENCOUNTER 2021-10-19 21:53 | Emergency (ER) | payer BC ==
[2021-10-19 22:15] VITALS: BP 99/53; PULSE 70
[2021-10-19] MEDS ORDERED: HYDROmorphone 0.5 MG/0.5 ML Syringe IVPUSH ONE (22:17)
[2021-10-19] MEDS ORDERED: Sodium Chloride 0.9% 1,000 ML IV SCH (22:30)
[2021-10-19] MEDS ORDERED: HYDROmorphone 1 MG/ML Syringe IVPUSH ONE (23:35)
[2021-10-19] MEDS ORDERED: Ondansetron 4 MG/2 ML SDV IVPUSH ONE (23:36)
== END 2021-10-20 01:45 | disposition home or self-care (01) ==
LOC: JP.ED 21:53
DX: S82.52XA Displaced fracture of medial malleolus of left tibia, initial encounter for closed fracture (principal); S82.832A Other fracture of upper and lower end of left fibula, initial encounter for closed fracture; J44.9 Chronic obstructive pulmonary disease, unspecified; Z88.0 Allergy status to penicillin; Z91.030 Bee allergy status; Z88.1 Allergy status to other antibiotic agents; Z88.8 Allergy status to other drugs, medicaments and biological substances; V80.010A Animal-rider injured by fall from or being thrown from horse in noncollision accident, initial encounter
CPT/HCPCS: 73610-26-LT; 73610-LT; 73700-LT; 96374; 96375; 96376; 99282; 99284-25; J1170; J2405; J7030

== ENCOUNTER 2022-05-23 07:56 | Day surgery (SDC) | payer BC ==
[2022-05-23 08:55] LABS: ESTIMATED GFR 109 mL/min (>60)
[2022-05-23] MEDS ORDERED: Lactated Ringers 1,000 ML IV SCH (09:00)
[2022-05-23] MEDS ORDERED: Nozin Nasal Sanitizer NASBOTH ONE (09:00)
[2022-05-23] MEDS ORDERED: Clindamycin Phosphate in D5W 900 MG in Premix Bag 1 BAG IV ONE ×2 (09:30)
[2022-05-23] MEDS ORDERED: fentaNYL 250 MCG/5 ML SDV ONE ×2 (09:34→11:40)
[2022-05-23] MEDS ORDERED: Propofol 200 MG/20 ML SDV ONE (09:35)
[2022-05-23] MEDS ORDERED: Dexamethasone 4 MG/ML SDV ONE (09:35)
[2022-05-23] MEDS ORDERED: Glycopyrrolate 0.2 MG/ML 5 ML MDV ONE (09:35)
[2022-05-23] MEDS ORDERED: Succinylcholine 200 MG/10 ML MDV ONE (09:35)
[2022-05-23] MEDS ORDERED: Neostigmine Methylsulfate 1 MG/ML 5 ML Syringe ONE (09:35)
[2022-05-23] MEDS ORDERED: Ondansetron 4 MG/2 ML SDV ONE (09:35)
[2022-05-23] MEDS ORDERED: Rocuronium 50 MG/5 ML Vial ONE (09:35)
[2022-05-23] MEDS: Bupivacaine 0.5%/EPINEPHrine 1:200,000 50 ML MDV ONE ×2 (11:02→11:41)
[2022-05-23] MEDS ORDERED: traMADol 50 MG Tab PO PRN (12:44)
[2022-05-23 13:49] VITALS: BP 129/74; PULSE 72
== END 2022-05-23 13:40 | disposition home or self-care (01) ==
LOC: JP.SDS 07:56
PROVIDERS: ATTEND Specialist
DX: M22.42 Chondromalacia patellae, left knee (principal); M94.8X6 Other specified disorders of cartilage, lower leg; M23.42 Loose body in knee, left knee; F31.9 Bipolar disorder, unspecified; Z98.890 Other specified postprocedural states; Z79.899 Other long term (current) drug therapy
CPT/HCPCS: 29874; 29999; 36415; 80053; 85027; A9270; J0330; J1100; J2405; J2704; J2710; J3010; J3490; J7120